=== PATIENT | female | born 1960 | race Caucasian/White ===

== ENCOUNTER → 2020-11-21 13:11 | Outpatient (CLI) | payer BC, SELFPAY ==
[2020-11-21 16:10] LABS: COVID19 -Nasal RAPID Negative (Negative)
== END ==
PROVIDERS: PCP Family Medicine; Visit Provider Physician Assistant
DX: Z20.822 Contact with and (suspected) exposure to COVID-19 (principal)
CPT/HCPCS: 87635

== ENCOUNTER 2020-11-23 09:13 | Day surgery (SDC) | payer BC, SELFPAY ==
[2020-11-18 14:38] VITALS: BMI 50.2
[2020-11-23] VITALS (11 sets, daily range): BP systolic 95–156; BP diastolic 56–97; PULSE 75–93; RESP 10–19; TEMP 36.1–36.7; O2SAT 91–98; BMI 50.0
[2020-11-23] MEDS: LACTATED RINGERS 1,000 ML 42 ML IV ×2 (09:45→12:45)
--- NOTE | 2020-11-23 11:14 | PM.PREOP ---
Pre-operative Note COVID-19 COVID-19 status: Negative Result date/Date tested (Pos, Neg/Pending): 11/21/20 Interval Note History & Physical reviewed/Exam performed by Physician: Yes Changes to H&P: No
--- NOTE | 2020-11-23 11:42 | SUR.PREOP ---
Block start time [1147] . Monitoring initiated and maintained throughout procedure. Oxygen given per anesthesiologist instructions. Medications given by anesthesiologist. Patient remained stable throughout procedure, no adverse reactions noted. Block end time [1152].
[2020-11-23] MEDS: CEFAZOLIN 2 GM/100 ML FROZ.PIGGY IV (11:58)
[2020-11-23] MEDS: SODIUM CHLORIDE IRRIG SOLUTION 3,000 ML, EPINEPHrine 1 MG IRR (12:48)
--- NOTE | 2020-11-23 12:55 | SUR.OPER ---
Lateral on padded OR bed with burks bag positioner, head on pillow, gel axillary roll in place, bottom leg bent with gel pad under knee to foot, upper leg straight and supported with pillows. Operative arm secured in shoulder positioning suspension device. non-operative arm secured on padded arm board. Safety belt at hip, tape over blanket securing lower legs.
--- NOTE | 2020-11-23 13:13 | PM.PROC.1 ---
Procedures Date/Time Date of procedure: 11/23/20 Time of procedure: 11:45 General Procedure description: Ultrasound guided interscalene brachial plexus nerve block for post op pain control after left shoulder arthroscopy by Dr. May. Risk and benefits of procedure discussed with patient. ASA monitoring applied to patient. O2 given via nasal cannula. 1 mg Versed and 50 mcg fentanyl given for procedural sedation. Skin site was prepped with chlorhexidine and allowed to fully dry. Sterile gloves, mask, hat and probe cover were used to maintain sterility. 2% lidocaine and 30ga needle was used to make a small skin wheal at needle insertion site. Under ultrasound guidance, a 21ga 50mm Pajunk needle was directed into the interscalene groove (middle/anterior scalenes) near the brachial plexus. Patient reported no parasthesias. After negative aspiration, 20 mL 0.5% ropivicaine and 10mg dexamethasone were injected around brachial plexus. Patient tolerated procedure well.
--- NOTE | 2020-11-23 13:46 | PM.OP.1 ---
Operative Date/Time/Diagnoses Date of procedure: 11/23/20 Time of procedure: 13:47 Pre-op diagnosis: Right shoulder rotator cuff tear Post-op diagnosis: same Procedure & Clinicians Procedure: 1. Arthroscopic rotator cuff repair, left shoulder 2. Arthroscopic subacromial decompression 3. Arthroscopic biceps tenotomy (minor debridement) Same procedure as scheduled: Yes Indications: Patient is a 60-year-old woman with a history of left shoulder pain and an MRI that shows rotator cuff tear. After discussion the risks benefits and alternatives she has elected to proceed with surgery. Risks discussed included but were not limited to: Failure to improve, stiffness, infection, nerve damage, deep venous thrombosis, pulmonary embolism, stroke, myocardial infarction, permanent paralysis and . Surgeon: Ankur May Change Number Operator: Niraj Mercado Click Yes if Unassisted: No Anesthesia Type: General, Peripheral nerve block and Local Operative Notes Findings: 1. Intact glenohumeral cartilage 2. Degenerative fraying of the glenoid labrum 3. Tearing of the upper portion of the subscapularis with attachment through the ?comma sign? to the supraspinatus 4. Dislocation of the biceps into the subscapularis tear 5. Tearing of the supraspinatus 6. Intact infraspinatus 7. Normal axillary pouch 8. Tearing of the bursal rotator cuff as described above 9. Type 2 acromion with impingement lesion 10. Acromioclavicular joint not visualized due to lack of preoperative symptoms 11. Intact glenohumeral ligaments 12. Exam under anesthesia notable for full range of motion with no evidence for pathologic laxity. Closure Type: primary Specimen(s): none sent Prosthetic devices, grafts, tissues, transplants, or devices: Two Mitek Healix Advance 5.5 mm triple threaded anchors Applied: implant(s) Estimated Blood Loss (mL): 10 Blood products transfused: none Procedure in detail: The patient was seen in the preoperative area where she identified her left shoulder as the operative site. This was marked with my initials. She received preoperative antibiotics and underwent an interscalene block. She was then taken to the operating room and placed on the operating room table in a supine position where she underwent a general anesthetic. A full time staff interpreter-out was performed. She was subsequently repositioned in the right lateral decubitus position with an axillary roll and padding for all pressure points. She was stabilized in this position using the burks bag and adhesive tape. Due to her tape allergy care was taken to avoid placing the tape directly on her skin. The left arm was prepared for the fingertips to the base of the neck with ChloraPrep in the usual fashion draped through sterile drapes. The arm was placed in 10 lb of balanced skin suspension. Subcutaneous landmarks were outlined on the skin with a marking pen. Portal sites were selected. The posterior portal was created for the arthroscope and diagnostic arthroscopy ensued with result given above. An anterosuperior lateral portal was created for access to the biceps tendon. Given the patient's morbid obesity, I elected to perform a biceps tenotomy rather than a tenodesis as there would be no cosmetic deformity. The tenotomy was performed. The subscapularis was then carefully inspected. It appeared to be torn in the upper portion in a sleeve that included the supraspinatus. There was a split longitudinally from the lower portion the subscapularis tendon. The arthroscope was then withdrawn and placed in the subacromial space through the posterior portal. An additional lateral portal was created for instrumentation. A bursectomy was performed for visualization a subacromial decompression was performed due to the very tight subacromial space with evidence for impinge on the acromion. The greater tuberosity was prepared to bleeding bone using the bur. This was extended into the bicipital groove and the upper portion of the lesser tuberosity. Two anchors were placed, 1 in the extreme anterior portion of the greater tuberosity at the bicipital groove the 2nd in the mid portion of the tear more posteriorly. The anterior anchor was used to also repair the subscapularis as 1 of the sutures was placed through the subscapularis to bring it up to the bicipital groove. This suture was tied initially. The remaining 5 sutures from the 2 anchors were then placed as simple sutures through the supraspinatus and tied to complete the repair. At this point all arthroscopic equipment was removed. The wounds were closed with 4-0 Monocryl and Steri-Strips. 0.5% Marcaine was infiltrated into the soft tissues for postoperative pain control. Dressings of sterile 4x4s, an ABD and adhesive dressing were applied. Patient's arm was placed in a sling she was to Complications: none Post-operative Condition: stable Disposition: PACU Plan for aftercare: The patient will be maintained on a standard medium size rotator cuff tear protocol with external rotations from the subscapularis protocol. She will be discharged later today.
[2020-11-23] MEDS: fentaNYL 100 MCG/2 ML INJ IV (13:50)
[2020-11-23] MEDS: OXYCODONE IR 5 MG TABLET PO ×2 (13:51→14:59)
[2020-11-23] MEDS: LORazepam 2 MG/ML INJ 0.5 MG IV (14:03)
--- NOTE | 2020-11-23 14:59 | SUR.PHASEII ---
Medicated for continued, but improved pain. Declined tylenol in percocet
== END 2020-11-23 15:01 | disposition home or self-care (01) ==
PROVIDERS: PCP Family Medicine; Referring Provider Family Medicine; Visit Provider Orthopaedic Surgery
PROC: (CPT 29827; principal; 2020-11-23 10:45)
DX: S46.012A Strain of muscle(s) and tendon(s) of the rotator cuff of left shoulder, initial encounter (principal); S46.212A Strain of muscle, fascia and tendon of other parts of biceps, left arm, initial encounter; M25.811 Other specified joint disorders, right shoulder; E66.9 Obesity, unspecified; W18.30XA Fall on same level, unspecified, initial encounter; Y92.008 Other place in unspecified non-institutional (private) residence as the place of occurrence of the external cause; Z68.43 Body mass index [BMI] 50.0-59.9, adult
CPT/HCPCS: 29827; 29826; 29822; 64450; J0171; J0690; J1100; J1885; J2060; J2250; J2405; J2704; J3010

== ENCOUNTER 2024-10-30 14:49 | Emergency (ER) | payer OTHER, SELFPAY ==
[2024-10-30 14:54] VITALS: BP 190/108; PULSE 81; RESP 16; TEMP 36.3; O2SAT 99; BMI 48.2
--- NOTE | 2024-10-30 15:11 | ED.FALL ---
HPI - Fall <Chasity Hays PA-C - Last Filed: 10/30/24 19:31> General Chief Complaint: Fall Stated Complaint: GLF, Head Injury, No Thinners Time Seen by Provider: 10/30/24 15:05 History of Present Illness HPI Narrative: Ms. Collazo is a pleasant 64-year-old female with a past medical history of migraines and arthritis who presents to the emergency department for head trauma and laceration after a fall that occurred prior to arrival. Patient works as a home health aide and was walking out of the patient's motor home when she missed the last step and fell to the right. Patient landed on her right side hitting the right side of her scalp on a space heater sustaining a laceration. Patient presents to the ER for further evaluation. She reports overall feeling well except for some pain on the right side of her scalp where the laceration is and brain fog. Denies neck pain, back pain, visual disturbance, blood thinner use, wrist pain, ankle pain, knee pain. Last Tdap was in 2013. Related Data Home Medications Medication Instructions Recorded Confirmed loratadine 10 mg tablet (Claritin) 10 mg PO DAILY 11/18/20 11/23/20 sertraline 100 mg tablet 100 mg PO DAILY 11/18/20 11/23/20 Previous Rx's Medication Instructions Recorded hydroxyzine pamoate 25 mg capsule 25 mg PO Q6HR PRN Spasms #30 caps 11/23/20 oxycodone 5 mg tablet 5 mg PO Q4HR PRN Pain, Moderate 11/23/20 (4-6) #40 tabs Allergies Allergy/AdvReac Type Severity Reaction Status Date / Time adhesive tape Allergy Mild Rash Verified 11/23/20 09:49 gabapentin Allergy Mild Rash, hives Verified 11/23/20 09:49 hydrogen peroxide Allergy Mild [place] skin Verified 11/23/20 09:49 alprazolam AdvReac Mild hyper, Verified 11/23/20 09:49 couldn't sleep diclofenac AdvReac Mild Depression Verified 11/23/20 09:49 indomethacin AdvReac Mild Migraines Verified 11/23/20 09:49 shellfish derived AdvReac Mild Nausea Verified 11/23/20 09:49 Review of Systems <Chasity Hays PA-C - Last Filed: 10/30/24 19:31> Review of Systems ROS Unobtainable: All systems reviewed & are unremarkable except as noted in HPI and below Patient History <Chasity Hays PA-C - Last Filed: 10/30/24 19:31> Medical History Depression Migraines Osteoarthritis Osteoporosis Morbid obesity with BMI of 50.0-59.9, adult Surgical History History of section Hx of cholecystectomy Hx of tubal ligation Hx of elbow surgery Hx of knee surgery Hx of knee surgery Hx of shoulder surgery Hx of thumb surgery H/O right wrist surgery Hx of tonsillectomy Social History household members: spouse Smoking Status: Never smoker alcohol intake: current Smoking Status: Never smoker alcohol intake frequency: holidays/special occasions only Exam <Chasity Hays PA-C - Last Filed: 10/30/24 19:31> Narrative Exam Narrative: GENERAL: 64 year old patient appears stated age. Well-developed patient, in no acute distress. HEAD: 2cm linear lac on right parietal scalp. Bleeding controlled with direct pressure. EYES: PERRL. Extraocular motions intact. No scleral icterus. No injection or drainage. ENT: Nose without bleeding, purulent drainage. Throat without erythema, tonsillar hypertrophy or exudate. Airway patent. NECK: Trachea midline. Cervical ROM intact. CARDIOVASCULAR: Regular rate and rhythm. RESPIRATORY: ?Nonlabored respirations. ?Speaking in clear, full sentences. ?Clear to auscultation. EXTREMITIES: No edema or joint tenderness. BACK: Nontender without deformity or crepitance. No flank tenderness. NEURO: AOx3. ?Clear speech. ?Moves all 4 extremities appropriately. Initial Vital Signs Initial Vital Signs: Vital Signs Temperature 97.4 F L 10/30/24 14:54 Pulse Rate 81 10/30/24 14:54 Respiratory Rate 16 10/30/24 14:54 Blood Pressure 190/108 H 10/30/24 14:54 Pulse Oximetry 99 10/30/24 14:54 Oxygen Delivery Method Room Air 10/30/24 14:54 <Kahlil Meza DO - Last Filed: 10/31/24 07:11> Initial Vital Signs Initial Vital Signs: Vital Signs Temperature 97.4 F L 10/30/24 14:54 Pulse Rate 81 10/30/24 14:54 Respiratory Rate 16 10/30/24 14:54 Blood Pressure 190/108 H 10/30/24 14:54 Pulse Oximetry 99 10/30/24 14:54 Oxygen Delivery Method Room Air 10/30/24 14:54 Procedures <TONI Gonzales Last Filed: 10/30/24 19:31> Laceration Repair Laceration 1: Time of procedure: 16:05 Site: scalp Side (If applicable): right Size (cm): 2 Description: linear Depth: simple, single layer Local Anesthetic: lidocaine 1% and with epi Amount of anesthesia used (mL): 4 Pre-repair: wound explored, irrigated extensively and cleansed with chlorhexadine Skin layer closed with: duane Number of sutures: 3 Course <TONI Gonzales Last Filed: 10/30/24 19:31> Orders Ordered: Discontinued Medications Acetaminophen (Acetaminophen 325 Mg Tablet) 975 mg PO NOW ONE Stop: 10/30/24 15:21 Last Admin: 10/30/24 15:29 Dose: 975 mg Documented By: DANIELLA Bacitracin (Bacitracin Oint 0.9 Gm Pckt) 1 applic TOP NOW ONE Stop: 10/30/24 15:21 Last Admin: 10/30/24 15:29 Dose: 1 applic Documented By: DANIELLA Diphtheria/Tetanus/Acell Pertussis (Tet,Diph,Pertuss(Acell),Vac/Pf 0.5 Ml Syringe) 0.5 ml IM .ONCE ONE Stop: 10/30/24 15:25 Last Admin: 10/30/24 15:29 Dose: 0.5 ml Documented By: DANIELLA Lidocaine/Epinephrine (Lidocaine 1% W/Epi 20ml) 1 ml SUBCUT NOW ONE Stop: 10/30/24 15:21 Last Admin: 10/30/24 15:30 Dose: 1 ml Documented By: DANIELLA Vital Signs Vital signs: Vital Signs - 8 hr 10/30/24 14:54 10/30/24 17:03 Temperature 97.4 F L Pulse Rate 81 67 Respiratory Rate 16 16 Blood Pressure 190/108 H 155/86 H Pulse Oximetry 99 98 Oxygen Delivery Method Room Air Room Air <DO Kacey Muhammad Last Filed: 10/31/24 07:11> Orders Ordered: Discontinued Medications Acetaminophen (Acetaminophen 325 Mg Tablet) 975 mg PO NOW ONE Stop: 10/30/24 15:21 Last Admin: 10/30/24 15:29 Dose: 975 mg Documented By: DANIELLA Bacitracin (Bacitracin Oint 0.9 Gm Pckt) 1 applic TOP NOW ONE Stop: 10/30/24 15:21 Last Admin: 10/30/24 15:29 Dose: 1 applic Documented By: DANIELLA Diphtheria/Tetanus/Acell Pertussis (Tet,Diph,Pertuss(Acell),Vac/Pf 0.5 Ml Syringe) 0.5 ml IM .ONCE ONE Stop: 10/30/24 15:25 Last Admin: 10/30/24 15:29 Dose: 0.5 ml Documented By: DANIELLA Lidocaine/Epinephrine (Lidocaine 1% W/Epi 20ml) 1 ml SUBCUT NOW ONE Stop: 10/30/24 15:21 Last Admin: 10/30/24 15:30 Dose: 1 ml Documented By: DANIELLA Vital Signs Vital signs: Vital Signs - 8 hr 10/30/24 14:54 10/30/24 17:03 Temperature 97.4 F L Pulse Rate 81 67 Respiratory Rate 16 16 Blood Pressure 190/108 H 155/86 H Pulse Oximetry 99 98 Oxygen Delivery Method Room Air Room Air MDM - Fall <Chasity Hays PA-C - Last Filed: 10/30/24 19:31> Imaging Data CT scan - head: Radiologist's Impression: PROCEDURE: CT HEAD/BRAIN WO CON INDICATIONS: fall; head trauma; R parietal lac TECHNIQUE: Noncontrast 4.5 mm thick angled axial sections acquired from the foramen magnum to the vertex, with coronal and sagittal reformats. For radiation dose reduction, the following was used: automated exposure control, adjustment of mA and/or kV according to patient size. COMPARISON: None. FINDINGS: Image quality: Diagnostic. CSF spaces: Basal cisterns are patent. No extra-axial fluid collections. Ventricles are normal in size and shape. Brain: No midline shift. No intracranial masses or hemorrhage. Rodriguez-white matter interface is normal. Skull and face: Calvarium and visualized facial bones are intact, without suspicious lesions. Sinuses: Visualized sinuses and mastoids are clear. IMPRESSION: No acute intracranial pathology. [facility] Narrative Medical decision making narrative: 64-year-old female with a past medical history of migraines and arthritis who presents to the emergency department for head trauma and laceration after a fall that occurred prior to arrival. On exam the patient is in no acute distress, nontoxic appearing, afebrile and not tachycardic. BP is elevated in triage at 190/108. Patient has no focal neurologic deficits on exam however she does have laceration over the right parietal scalp. No midline spinal tenderness. After shared decision-making with the patient, giving her mechanism of injury and subsequent injury now with headache and brain fog will obtain CT head to rule out acute intracranial abnormality. We will treat with Tylenol. We will update Tdap. We will anesthetize wound with forging engineer with epi and repair using duane. Patient tolerated laceration repair well, 3 duane placed. Advised suture removal in 7-10 days. We extensively discussed proper wound care. Head CT negative for any acute abnormalities. Recommended rest, decrease mental strain, ibuprofen/Tylenol if needed for pain, follow up with PCP. L and I paperwork filled out. Patient verbalized understanding of all information and is stable for discharge home. ER Return precautions discussed. Discharge Plan Departure Patient Disposition: Home Clinical Impression: Fall Qualifiers: Encounter type: initial encounter Qualified Code(s): W19.XXXA - Unspecified fall, initial encounter Laceration of scalp Qualifiers: Encounter type: initial encounter Qualified Code(s): S01.01XA - Laceration without foreign body of scalp, initial encounter Instructions: DI for Laceration Repair of the Scalp Activity Restrictions/Additional Instructions: Today you had a laceration to your right scalp. We have placed 3 duane.. They need to be removed in 7-10 days. You may do this in your doctor's office, the [id number], or here if necessary. Please keep the wound clean, dry, and intact for the next 12-24 hours. After this time, you may gently clean the wound with soap and water, then pat dry. Keep the wound clean and covered. Avoid soaking the wound in any water such as a bath, pool, or the ocean. If you develop any signs of wound infection such as increased redness, pus drainage, streaking redness, or fevers, please return to the ER immediately for evaluation. We updated your tetanus shot today. Please take Ibuprofen (Motrin/Advil) or Acetaminophen (Tylenol) for pain. These are available over the counter. You may take Ibuprofen 600 mg every 8 hours with food for pain. You may also take Acetaminophen 650 mg every 4-6 hours for pain. Do not exceed 3000 mg of Tylenol a day as this can cause liver damage. Do not drink alcohol with either of these medications. Please follow up with your primary care doctor within the next 2-3 days for ER follow-up. (If you do not have a PCP you can call [phone]. ?to schedule an appointment with an [facility] Primary Care Provider) IF YOU DEVELOP ANY NEW OR WORSENING SYMPTOMS, RETURN TO THE ER! Please read the attached instructions, they highlight more specific treatments and interventions for you at home. Thank you for letting me participate in your care, Chasity Hays PA-C Prescriptions: No Action sertraline 100 mg Tablet 100 mg PO DAILY loratadine [Claritin] 10 mg Tablet 10 mg PO DAILY hydroxyzine pamoate 25 mg Capsule 25 mg PO Q6HR PRN (Reason: Spasms) Qty: 30 0RF oxycodone 5 mg Tablet 5 mg PO Q4HR PRN (Reason: Pain, Moderate (4-6)) Qty: 40 0RF Referrals: Concha Araujo DO [Primary Care Provider] - Stand Alone Forms: Patient Portal/API/Survey, Work Release Note ED Sign-out <Kahlil Meza DO - Last Filed: 10/31/24 07:11> [facility] Dr Meza Co-Sign Statement: I was available for consultation during this patient's emergency department visit. This chart is signed by myself for administrative purposes only. I did not have direct contact with this patient during this visit. They were seen independently by the APC.
--- NOTE | 2024-10-30 15:20 | DI.CT.S_ITS ---
PROCEDURE: CT HEAD/BRAIN WO CON INDICATIONS: fall; head trauma; R parietal lac TECHNIQUE: Noncontrast 4.5 mm thick angled axial sections acquired from the foramen magnum to the vertex, with coronal and sagittal reformats. For radiation dose reduction, the following was used: automated exposure control, adjustment of mA and/or kV according to patient size. COMPARISON: None. FINDINGS: Image quality: Diagnostic. CSF spaces: Basal cisterns are patent. No extra-axial fluid collections. Ventricles are normal in size and shape. Brain: No midline shift. No intracranial masses or hemorrhage. Rodriguez-white matter interface is normal. Skull and face: Calvarium and visualized facial bones are intact, without suspicious lesions. Sinuses: Visualized sinuses and mastoids are clear. IMPRESSION: No acute intracranial pathology. Dictated by: Luna Galeas M.D. on 10/30/2024 at 16:22 Approved by: Luna Galeas M.D. on 10/30/2024 at 16:22
[2024-10-30] MEDS: BACITRACIN OINT 0.9 GM PCKT 1 APPLIC TOP (15:29)
[2024-10-30] MEDS: TET,DIPH,PERTUSS(ACELL),VAC/PF 0.5 ML SYRINGE IM (15:29)
[2024-10-30] MEDS: ACETAMINOPHEN 325 MG TABLET 975 MG PO (15:29)
[2024-10-30] MEDS: LIDOCAINE 1% W/EPI 20ML SUBCUT (15:30)
[2024-10-30 17:03] VITALS: BP 155/86; PULSE 67; RESP 16; O2SAT 98
== END 2024-10-30 17:03 | disposition home or self-care (01) ==
PROVIDERS: Emergency Provider Physician Assistant; PCP Family Medicine
DX: S01.01XA Laceration without foreign body of scalp, initial encounter (principal); W10.8XXA Fall (on) (from) other stairs and steps, initial encounter; Y92.028 Other place in mobile home as the place of occurrence of the external cause; Y99.0 Civilian activity done for income or pay; Z23 Encounter for immunization
CPT/HCPCS: 12001; 70450; 90471; 99283; 99284; 90715